=== PATIENT | female | born 1965 | race Caucasian/White ===

== ENCOUNTER 2017-04-14 14:35 | Observation (INO) | payer BC ==
[2017-04-14] MEDS ORDERED: NS 1000 ML 1,000 ML IV ONE (15:46)
[2017-04-14] MEDS: COLACE CAP 100 MG PO SCH ×2 (16:29→20:31)
[2017-04-14] MEDS: PHENERGAN INJ 25 MG IV PRN ×2 (16:29→22:35)
[2017-04-14 16:38] LABS: BASOPHILS # (AUTO) 0.1 X10^3/uL (0.0-0.1); BASOPHILS % (AUTO) 0.5 % (0.2-1.0); HEMATOCRIT 35.2 % (36.0-47.0); LYMPHOCYTES # (AUTO) 0.7 X10^3/uL (1.3-2.9); LYMPHOCYTES % (AUTO) 5.4 % (21.0-51.0); MEAN CORPUSCULAR HEMOGLOBIN 27.9 pg (27.0-34.0); MEAN CORPUSCULAR HGB CONC 34.1 g/dL (33.0-35.0); MEAN CORPUSCULAR VOLUME 81.6 fL (80.0-100.0); MEAN PLATELET VOLUME 8.5 fL (7.4-11.0); MONOCYTES # (AUTO) 1.6 x10^3/uL (0.3-0.8); MONOCYTES % (AUTO) 11.4 % (0.0-13.0); NEUTROPHILS # (AUTO) 11.4 x10^3/uL (2.2-4.8); NEUTROPHILS % (AUTO) 82.7 % (42.0-75.0); PLATELET COUNT 210 X10^3/uL (150.0-450.0); RED BLOOD COUNT 4.31 X10^6/uL (3.5-5.4); WHITE BLOOD COUNT 13.7 X10^3/uL (3.6-10.0)
[2017-04-14 16:49] LABS: CALCIUM 9.1 mg/dL (8.5-10.1); CARBON DIOXIDE 24.3 mmol/L (21-32); CREATININE 1.44 mg/dL (0.55-1.02)
[2017-04-14 16:57] LABS: ALBUMIN 3.3 g/dL (3.4-5.0); COR CA(FOR HYPOALB) 9.7 mg/dL (8.5-10.1); TOTAL PROTEIN 7.6 g/dL (6.4-8.2)
--- NOTE | 2017-04-14 17:56 | CT ---
HISTORY: Flank pain and hematuria and left lower extremity pain Study: CT abdomen and pelvis without contrast Comparison: April 08, 2014 Technique: Multiple axial images of the abdomen and pelvis were obtained from the lung bases to the pubic symphy sis without the administration of IV contrast. Sagittal and coronal reformations were provided. Findings: The visualized portions of the lung bases are unremarkable. There is a percutaneous lap band. There is an unchanged large staghorn calculus conforming to the lower pole of the left kidney. There is no hydronephrosis. The right kidney and liver and spleen and pancreas are unremarkable, as well as the a drenal glands.. There is ventral abdominal mesh with persistent herniation of small bowel inferior an d lateral to the mesh through a nearly 2 cm wide defect in the abdominal wall. There is no evidence f or obstruction or inflammation. There is no ascites or adenopathy.. The gallbladder surgically absen t. No adnexal mass is demonstrated. There is a new low ventral pelvic abdominal hernia of small bowel through a 4 cm wide defect in the abdominal wall.. The colon is unremarkable. Specifically, there is no diverticulosis noted within the sigmoid colon. The urinary bladder is grossly unremarkable. Th e bony structures are grossly intact. IMPRESSION: 1. New low pelvic ventral and hernia of small bowel without obstruction 2. Unchanged right ventral abdominal hernia inferior and lateral to the ventral mesh, without obstruc tion 3. Unchanged large lower pole left renal staghorn calculus Reported By:
[2017-04-14 17:58] LABS: BILIRUBIN,URINE NEGATIVE (NEGATIVE); BLOOD/HEMOGLOBIN,URINE 4+ (NEGATIVE); GLUCOSE, URINE NEGATIVE (NEGATIVE); KETONES,URINE NEGATIVE (NEGATIVE); LEUKOCYTE ESTERASE ,URINE 3+ (NEGATIVE); NITRITES,URINE NEGATIVE (NEGATIVE); PROTEIN,URINE 2+ (NEGATIVE); UROBILINOGEN,URINE NORMAL (NORMAL)
[2017-04-14 18:12] VITALS: BMI 36.2
[2017-04-14 18:12] LABS: COLOR,URINE DARK YELLOW (YELLOW)
[2017-04-14] MEDS ORDERED: FLUVIRIN IM ONE (18:12)
[2017-04-14] MEDS ORDERED: PREVNAR 13 IM ONE (18:12)
[2017-04-14 18:13] LABS: APPEARANCE,URINE CLOUDY (CLEAR); BACTERIA,URINE 2+ /HPF (NEGATIVE); RBC,URINE TNTC /HPF (NEGATIVE); SQUAMOUS EPITHELIAL CELL,UR FEW /HPF (NEGATIVE)
[2017-04-14] MEDS ORDERED: K-LYTE EFFERVESCENT PO PRN (19:21)
[2017-04-14] MEDS ORDERED: MAG-OX TAB PO PRN (19:21)
[2017-04-14] MEDS ORDERED: MAGNESIUM SULFATE 1 GM/100 mL PREMIX 1 GM/100 ML BAG IV PRN ×2 (19:21)
[2017-04-14] MEDS ORDERED: K-RIDER 10 MEQ/NS 100 ML 10 MEQ/100 ML BAG IV PRN ×2 (19:21)
[2017-04-14] MEDS: K-LYTE EFFERVESCENT PO PRN ×2 (20:30→22:36)
[2017-04-14] MEDS: ROCEPHIN VIAL 1 GM 1 GM in NS 50 ML IV 50 ML IV SCH (20:31)
[2017-04-14] MEDS: NS 1000 ML 1,000 ML IV SCH (22:49)
[2017-04-15] MEDS: TYLENOL 325 MG TAB PO PRN ×2 (00:30→17:48)
[2017-04-15 05:26] LABS: BASOPHILS % (AUTO) 0.4 % (0.2-1.0); HEMATOCRIT 31.1 % (36.0-47.0); HEMOGLOBIN 10.8 g/dL (12.0-16.0); LYMPHOCYTES # (AUTO) 0.5 X10^3/uL (1.3-2.9); LYMPHOCYTES % (AUTO) 6.4 % (21.0-51.0); MEAN CORPUSCULAR HGB CONC 34.6 g/dL (33.0-35.0); MEAN CORPUSCULAR VOLUME 81.1 fL (80.0-100.0); MEAN PLATELET VOLUME 8.9 fL (7.4-11.0); MONOCYTES # (AUTO) 0.8 x10^3/uL (0.3-0.8); MONOCYTES % (AUTO) 9.6 % (0.0-13.0); NEUTROPHILS # (AUTO) 7.1 x10^3/uL (2.2-4.8); NEUTROPHILS % (AUTO) 83.6 % (42.0-75.0); PLATELET COUNT 174 X10^3/uL (150.0-450.0); RED BLOOD COUNT 3.84 X10^6/uL (3.5-5.4); RED CELL DISTRIBUTION WIDTH 13.9 % (11.6-16.5); WHITE BLOOD COUNT 8.5 X10^3/uL (3.6-10.0)
[2017-04-15 05:43] LABS: ALANINE AMINOTRANSFERASE 34 Units/L (12-78); ALBUMIN 2.8 g/dL (3.4-5.0); ALKALINE PHOSPHATASE 95 Units/L (46-116); ASPARTATE AMINO TRANSFERASE 27 Units/L (15-37); BLOOD UREA NITROGEN 12 mg/dL (7-18); CALCIUM 8.5 mg/dL (8.5-10.1); CARBON DIOXIDE 22.6 mmol/L (21-32); CHLORIDE 104 mmol/L (98-107); COR CA(FOR HYPOALB) 9.5 mg/dL (8.5-10.1); COR NA(FOR HYPERGLY) 138 mmol/L (136-145); CREATININE 1.04 mg/dL (0.55-1.02); SODIUM 138 mmol/L (136-145); TOTAL PROTEIN 6.8 g/dL (6.4-8.2); eGFR BLACK RACES > 60 (>60); eGFR NON BLACK RACES 59 (>60)
[2017-04-15] MEDS: NS 1000 ML 1,000 ML IV SCH ×3 (06:24→18:46)
[2017-04-15] MEDS: MAG-OX TAB PO PRN (09:23)
[2017-04-15] MEDS: PERCOCET TAB 5/325 MG PO PRN (09:24)
[2017-04-15] MEDS: K-LYTE EFFERVESCENT PO PRN (09:25)
[2017-04-15] MEDS: ROCEPHIN VIAL 1 GM 1 GM in NS 50 ML IV 50 ML IV SCH (09:27)
[2017-04-15] MEDS: PHENERGAN INJ 25 MG IV PRN (09:30)
[2017-04-15] MEDS: K-DUR TAB 20 MEQ PO SCH (09:30)
[2017-04-15] MEDS ORDERED: FLUVIRIN IM ONE (11:28)
[2017-04-15] MEDS ORDERED: PREVNAR 13 IM ONE (11:28)
[2017-04-15] MEDS: COLACE CAP 100 MG PO SCH (20:22)
[2017-04-16] MEDS: NS 1000 ML 1,000 ML IV SCH ×2 (00:11→20:06)
[2017-04-16] MEDS: PERCOCET TAB 5/325 MG PO PRN ×2 (03:22→22:26)
[2017-04-16 06:08] LABS: BASOPHILS % (AUTO) 0.6 % (0.2-1.0); EOSINOPHILS % (AUTO) 0.7 % (0.9-2.9); HEMOGLOBIN 10.1 g/dL (12.0-16.0); LYMPHOCYTES % (AUTO) 16.7 % (21.0-51.0); MEAN CORPUSCULAR HEMOGLOBIN 28.2 pg (27.0-34.0); MEAN CORPUSCULAR HGB CONC 34.9 g/dL (33.0-35.0); MEAN CORPUSCULAR VOLUME 80.7 fL (80.0-100.0); MEAN PLATELET VOLUME 8.8 fL (7.4-11.0); MONOCYTES # (AUTO) 0.9 x10^3/uL (0.3-0.8); MONOCYTES % (AUTO) 15.9 % (0.0-13.0); NEUTROPHILS # (AUTO) 3.8 x10^3/uL (2.2-4.8); NEUTROPHILS % (AUTO) 66.1 % (42.0-75.0); PLATELET COUNT 150 X10^3/uL (150.0-450.0); RED BLOOD COUNT 3.59 X10^6/uL (3.5-5.4); WHITE BLOOD COUNT 5.7 X10^3/uL (3.6-10.0)
[2017-04-16] MEDS: PHENERGAN INJ 25 MG IV PRN (06:32)
[2017-04-16 06:42] LABS: PLATELET MORPHOLOGY COMMENT NORMAL (NORMAL)
[2017-04-16 06:48] LABS: ALANINE AMINOTRANSFERASE 29 Units/L (12-78); ALBUMIN 2.5 g/dL (3.4-5.0); ALKALINE PHOSPHATASE 89 Units/L (46-116); ASPARTATE AMINO TRANSFERASE 17 Units/L (15-37); BLOOD UREA NITROGEN 10 mg/dL (7-18); CALCIUM 8.2 mg/dL (8.5-10.1); CARBON DIOXIDE 23.9 mmol/L (21-32); CHLORIDE 105 mmol/L (98-107); COR CA(FOR HYPOALB) 9.4 mg/dL (8.5-10.1); CREATININE 0.83 mg/dL (0.55-1.02); MAGNESIUM 1.7 mg/dL (1.7-2.9); SODIUM 138 mmol/L (136-145); TOTAL PROTEIN 6.4 g/dL (6.4-8.2); eGFR BLACK RACES > 60 (>60); eGFR NON BLACK RACES > 60 (>60)
[2017-04-16] MEDS: ROCEPHIN VIAL 1 GM 1 GM in NS 50 ML IV 50 ML IV SCH (09:18)
[2017-04-16] MEDS: K-LYTE EFFERVESCENT PO PRN ×2 (09:19→15:23)
[2017-04-16] MEDS: MAG-OX TAB PO PRN (09:20)
[2017-04-16] MEDS: K-DUR TAB 20 MEQ PO SCH (09:20)
[2017-04-16] MEDS ORDERED: LEVAQUIN PREMIX IV 500 MG 500 MG/100 ML BAG IV ONE ×2 (13:28→16:34)
[2017-04-16] MEDS: COLACE CAP 100 MG PO SCH (20:06)
[2017-04-17] MEDS: PHENERGAN INJ 25 MG IV PRN ×2 (02:00→11:06)
[2017-04-17] MEDS: NS 1000 ML 1,000 ML IV SCH ×2 (02:01→15:09)
[2017-04-17 06:29] LABS: ALANINE AMINOTRANSFERASE 34 Units/L (12-78); ALBUMIN 2.5 g/dL (3.4-5.0); ALKALINE PHOSPHATASE 115 Units/L (46-116); ASPARTATE AMINO TRANSFERASE 34 Units/L (15-37); BLOOD UREA NITROGEN 8 mg/dL (7-18); CALCIUM 8.7 mg/dL (8.5-10.1); CARBON DIOXIDE 25.8 mmol/L (21-32); CHLORIDE 107 mmol/L (98-107); COR CA(FOR HYPOALB) 9.9 mg/dL (8.5-10.1); CREATININE 0.74 mg/dL (0.55-1.02); SODIUM 141 mmol/L (136-145); TOTAL PROTEIN 6.5 g/dL (6.4-8.2); eGFR BLACK RACES > 60 (>60); eGFR NON BLACK RACES > 60 (>60)
--- NOTE | 2017-04-17 06:32 | RAD ---
Chest, one-view Indication: Cough Comparison: None Findings: Heart size is normal. No focal consolidation, effusion or pneumothorax is identified. No ac nic osseous abnormality is seen. Impression: No acute chest process. Reported By:
[2017-04-17 06:35] LABS: BASOPHILS % (AUTO) 1.1 % (0.2-1.0); EOSINOPHILS # (AUTO) 0.1 x10^3/uL (0.0-0.2); EOSINOPHILS % (AUTO) 2.5 % (0.9-2.9); HEMATOCRIT 27.3 % (36.0-47.0); HEMOGLOBIN 9.7 g/dL (12.0-16.0); LYMPHOCYTES # (AUTO) 1.3 X10^3/uL (1.3-2.9); LYMPHOCYTES % (AUTO) 31.9 % (21.0-51.0); MEAN CORPUSCULAR HEMOGLOBIN 28.6 pg (27.0-34.0); MEAN CORPUSCULAR HGB CONC 35.5 g/dL (33.0-35.0); MEAN CORPUSCULAR VOLUME 80.5 fL (80.0-100.0); MEAN PLATELET VOLUME 8.4 fL (7.4-11.0); MONOCYTES # (AUTO) 0.6 x10^3/uL (0.3-0.8); MONOCYTES % (AUTO) 13.7 % (0.0-13.0); NEUTROPHILS # (AUTO) 2.1 x10^3/uL (2.2-4.8); NEUTROPHILS % (AUTO) 50.8 % (42.0-75.0); PLATELET COUNT 190 X10^3/uL (150.0-450.0); RED BLOOD COUNT 3.39 X10^6/uL (3.5-5.4); RED CELL DISTRIBUTION WIDTH 13.8 % (11.6-16.5); WHITE BLOOD COUNT 4.2 X10^3/uL (3.6-10.0)
[2017-04-17] MEDS: K-DUR TAB 20 MEQ PO SCH (08:01)
[2017-04-17] MEDS: ROCEPHIN VIAL 1 GM 1 GM in NS 50 ML IV 50 ML IV SCH (08:01)
[2017-04-17] MEDS: TYLENOL 325 MG TAB PO PRN (08:04)
[2017-04-17] MEDS: PERCOCET TAB 5/325 MG PO PRN (11:06)
[2017-04-17 15:47] VITALS: BP 115/67
== END 2017-04-17 17:50 | disposition home or self-care (01) | DRG 690 ==
LOC: MED/SURG 14:35
PROVIDERS: ADMIT Internal Medicine; ATTEND Internal Medicine
PROC: 3E0234Z Introduction of Serum, Toxoid and Vaccine into Muscle, Percutaneous Approach (ICD-10-PCS; principal; 2017-04-15)
PROC: 3E0234Z Introduction of Serum, Toxoid and Vaccine into Muscle, Percutaneous Approach (ICD-10-PCS; 2017-04-15)
DX: N39.0 Urinary tract infection, site not specified (principal); B96.1 Klebsiella pneumoniae [K. pneumoniae] as the cause of diseases classified elsewhere; R10.84 Generalized abdominal pain; E86.0 Dehydration; E87.6 Hypokalemia; R31.9 Hematuria, unspecified; Z87.442 Personal history of urinary calculi; K43.9 Ventral hernia without obstruction or gangrene; K45.8 Other specified abdominal hernia without obstruction or gangrene; N20.0 Calculus of kidney
CPT/HCPCS: 36415; 71010; 74176; 80053; 81001; 83735; 84132; 85025; 87040; 87077; 87086; 87088; 87186; 90686; A4222; 90670; G0378; J0696; J1956; J2550; J3480